=== PATIENT | female | born 1955 | race Asian ===

== ENCOUNTER 2023-02-20 22:47 | Emergency (ER) | payer OTHER, BC ==
[~2023-02-20] VITALS: Ht 152.4 cm; Wt 49.9 kg
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
[2023-02-20 23:07] VITALS: BP_SYST 200
--- NOTE | 2023-02-20 23:38 | NUR ---
Patient to ER bed 08 to gown for evaluation. Side rails up. Report given to BEENA ARTHUR
--- NOTE | 2023-02-20 23:41 | NUR ---
Ezekiel hunt in [facility] - 02/20/23 at 2356 by SDEDTBC HASEEB Pak at bedside examining patient.
[2023-02-21] MEDS ORDERED: MORPHINE 2 MG/ML INJ. SYRINGE IM ONE (00:30)
[2023-02-21] MEDS ORDERED: ACETAMINOPHEN 500 MG TABLET ONE (00:54)
[2023-02-21] MEDS ORDERED: ACETAMINOPHEN 500 MG TABLET PO ONE (01:00)
[2023-02-21] MEDS ORDERED: IBUP-1969 PO (02:03)
[2023-02-21] MEDS ORDERED: HYDR-3917 PO (02:03)
--- NOTE | 2023-02-21 03:00 | NUR ---
Patient's family member given written and verbal discharge instructions and verbalizes understanding. ER MD discussed with patient the results and treatment provided. Patient in stable condition. ID arm band removed. IV catheter removed intact and dressing applied, no active bleeding. Rx given to family member. Patient educated on pain management and to follow up with PMD. Pain Scale 0/10. Opportunity for questions provided and answered. Medication side effect fact sheet provided.
[2023-02-21 03:18] VITALS: BP_SYST 155
== END 2023-02-21 03:00 | disposition home or self-care (01) ==
LOC: SED 22:47
DX: S13.4XXA Sprain of ligaments of cervical spine, initial encounter (principal); R51.9 Headache, unspecified; M54.50 Low back pain, unspecified; I10 Essential (primary) hypertension; Z79.899 Other long term (current) drug therapy; V89.2XXA Person injured in unspecified motor-vehicle accident, traffic, initial encounter; Y93.89 Activity, other specified; Y92.89 Other specified places as the place of occurrence of the external cause; Y99.8 Other external cause status
CPT/HCPCS: 70450-TC; 72125-TC; 72131; 76376; 99284